=== PATIENT | female | born 1990 | race Caucasian/White ===

== ENCOUNTER 2016-07-11 03:16 | Inpatient (IN) | payer OTHER ==
[~2016-07-11] VITALS: Ht 165.1 cm; Wt 73.6 kg
[2016-07-11] VITALS (24 sets, daily range): BP systolic 88–148; BP diastolic 53–78
[~2016-07-11 03:16] MED LIST: HYDROCODON-ACE1 EA11 PO; KEFLEX500 MG PO; MILK OF MAGN PO; NOHOMEMEDS; PRENATAL TABLE1 EAC3 PO; VICODIN 5-3001 EACH PO
[2016-07-11 04:09] LABS: EOSINOPHIL (%) 0.4 % (0-5); HEMATOCRIT 36.2 % (36.0-46.0); IMMATURE GRANULOCYTE (%) 0.5 % (0.0-0.7); IMMATURE GRANULOCYTE COUNT 0.6 K/uL; LYMPHOCYTE COUNT 2.6 K/uL (1.0-2.8); MCH 32.4 PG (29.0-34.0); MCHC 34.3 G/DL (30.0-36.0); MCV 94.5 FL (83-99); MEAN PLAT.VOLUME 11.9 uM^3 (9.5-12.4); MONOCYTE (%) 11.4 % (3-12); MONOCYTE COUNT 1.3 K/uL (0-0.8); NEUTROPHIL (%) 64.3 % (45-76); NEUTROPHIL COUNT 7.3 K/uL (1.8-6.4); PLATELET COUNT 165 K/uL (156-360); RBC DIS.WIDTH-CV 13.6 % (11.8-14.6); RBC DIS.WIDTH-SD 45.2 % (39-53); RED BLOOD COUNT 3.83 M/uL (3.80-5.20); WHITE BLOOD COUNT 11.4 K/uL (4.1-10.2)
[2016-07-11] MEDS ORDERED: IRON325 M1 PO (06:36)
[2016-07-11] MEDS ORDERED: IBUPROFEN800 MG PO (12:08)
[2016-07-12 07:30] VITALS: BP 127/56
[2016-07-12 14:57] VITALS: BP 132/74
[2016-07-12 22:38] VITALS: BP 109/53
[2016-07-13 07:53] VITALS: BP 113/58
[2016-07-13] MEDS ORDERED: CAMILA0.35 MG PO (10:26)
== END 2016-07-13 15:43 | disposition home or self-care (01) | DRG 775 ==
LOC: LDRP-OP 03:16 → 2WEST 03:17 → LDRP-OP 08-18 16:14
PROVIDERS: Nurse Practitioner
PROC: 10E0XZZ Delivery of Products of Conception, External Approach (ICD-10-PCS; principal; 2016-07-11)
PROC: 3E0S3BZ Introduction of Anesthetic Agent into Epidural Space, Percutaneous Approach (ICD-10-PCS; 2016-07-11)
DX: O99.824 Streptococcus B carrier state complicating childbirth (principal); O99.02 Anemia complicating childbirth; D64.9 Anemia, unspecified; Z37.0 Single live birth; Z3A.38 38 weeks gestation of pregnancy; O32 Maternal care for malpresentation of fetus
CPT/HCPCS: 85025; C1755; J2405; J2540; J7120

== ENCOUNTER 2017-01-25 08:04 | Day surgery (SDC) | payer OTHER ==
[~2017-01-25] VITALS: Ht 162.6 cm; Wt 55.3 kg
[~2017-01-25 08:04] MED LIST changes: +CAMILA0.35 MG PO; +IBUPROFEN800 MG PO; +IRON325 M1 PO; +SPRINTEC1 EACH PO
[2017-01-25 08:34] VITALS: BP 114/56
[2017-01-25 11:30] VITALS: BP 107/61
[2017-01-25 12:05] VITALS: BP 109/57
== END 2017-01-25 12:24 | disposition home or self-care (01) ==
LOC: SDC 08:04
PROC: 0UBC7ZX Excision of Cervix, Via Natural or Artificial Opening, Diagnostic (ICD-10-PCS; principal; 2017-01-25)
DX: D06.9 Carcinoma in situ of cervix, unspecified (principal); Z87.891 Personal history of nicotine dependence
CPT/HCPCS: 88305; 88307; J1100; J1885; J2250; J2405; J3010